=== PATIENT | female | born 1960 | race Hispanic/Latino ===

== ENCOUNTER 2021-07-09 01:38 | Emergency (ER) | payer OTHER, BC ==
[2021-07-09] MEDS ORDERED: Iopamidol 370 76% 100 ML VIAL FS ONE (01:39)
== END 2021-07-09 05:04 | disposition home or self-care (01) ==
LOC: MADERS 01:38
DX: S22.31XA Fracture of one rib, right side, initial encounter for closed fracture (principal); S32.039A Unspecified fracture of third lumbar vertebra, initial encounter for closed fracture; S60.221A Contusion of right hand, initial encounter; S30.1XXA Contusion of abdominal wall, initial encounter; E04.1 Nontoxic single thyroid nodule; V49.59XA Passenger injured in collision with other motor vehicles in traffic accident, initial encounter; W22.10XA Striking against or struck by unspecified automobile airbag, initial encounter
CPT/HCPCS: 71260; 74177; G0390; Q9967